=== PATIENT | female | born 1995 | race Caucasian/White ===

== ENCOUNTER 2021-05-21 19:43 | Emergency (ER) | payer OTHER, SELFPAY ==
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
[2021-05-21 19:56] VITALS: BP 124/62; PULSE 64; RESP 18; TEMP 36.1; O2SAT 99; BMI 40.6
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
[2021-05-21] MEDS: HYDROCODONE/ACET 5/325 TABLET 1 TAB PO (20:14)
[2021-05-21] MEDS: TET,DIPH,PERTUSS(ACELL),VAC/PF 0.5 ML SYRINGE IM (20:14)
[2021-05-21 20:33] VITALS: BP 124/61; PULSE 76; RESP 18; O2SAT 99
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
--- NOTE | 2021-05-22 18:23 | PC.NURSE ---
pt called today, requesting her ortho shoe, i made her aware of the prescription that was left behind as well. both were provided.
== END 2021-05-21 20:33 | disposition home or self-care (01) ==
PROVIDERS: Emergency Provider Emergency Medicine
DX: S91.131A Puncture wound without foreign body of right great toe without damage to nail, initial encounter (principal); W34.00XA Accidental discharge from unspecified firearms or gun, initial encounter; Z23 Encounter for immunization
CPT/HCPCS: 73630; 90471; 99283; 99284; 90715

== ENCOUNTER 2022-10-11 08:01 | Emergency (ER) | payer OTHER, MEDICAID, SELFPAY ==
[2022-10-11 08:04] VITALS: BP 160/82; PULSE 83; RESP 18; TEMP 36.6; O2SAT 96; BMI 45.4
[2022-10-11 08:06] VITALS: O2SAT 95
[2022-10-11 08:07] VITALS: BP 160/82; PULSE 89; O2SAT 99
[2022-10-11 08:16] VITALS: BP 149/91; PULSE 93; O2SAT 99
--- NOTE | 2022-10-11 08:17 | DI.RAD.S_ITS ---
PROCEDURE: XR ABDOMEN 1V INDICATIONS: abd pain TECHNIQUE: One view of the abdomen acquired. COMPARISON: None. FINDINGS: Surgical changes and devices: None. Bowel: Scattered small bowel and colonic gas. No dilated loops of bowel seen. Soft tissues: No suspicious abdominal calcifications. Visualized solid organ contours appear normal in size. Bones: No suspicious bony lesions. IMPRESSION: Nonobstructive bowel gas pattern. Dictated by: Eleno Monteiro M.D. on 10/11/2022 at 9:01 Approved by: Eleno Monteiro M.D. on 10/11/2022 at 9:02
--- NOTE | 2022-10-11 08:18 | ED_ITS ---
HPI - General Adult General Chief complaint: Abdominal Pain Stated complaint: upper abdom pain started yest Time Seen by Provider: 10/11/22 08:04 Source: patient Mode of arrival: Ambulatory Limitations: no limitations History of Present Illness HPI narrative: Patient is a 26-year-old female who is here for evaluation of left upper quadrant abdominal pain. States that the symptoms started yesterday. She was at work when the symptoms started. She thinks that maybe this morning when she drinks some fluids the symptoms gotten worse but she is not 100% sure. Did have a loose bowel movement yesterday but that was before the abdominal pain started. She denies any urinary symptoms. Some nausea but no vomiting. No prior abdominal surgeries. Has not tried anything for symptoms prior to arrival. Related Data Previous Rx's Medication Instructions Recorded hydrocodone 5 mg-acetaminophen 325 1 tab PO Q6H PRN pain #10 tabs 05/22/21 mg tablet Allergies Allergy/AdvReac Type Severity Reaction Status Date / Time No Known Drug Allergies Allergy Verified 05/23/21 08:30 Review of Systems Constitutional Constitutional: Reports system reviewed and no additional complaints, except as documented Cardiovascular Cardiovascular: Reports system reviewed and no additional complaints, except as documented Respiratory Respiratory: Reports system reviewed and no additional complaints, except as documented Gastrointestinal Gastrointestinal: Reports system reviewed and no additional complaints, except as documented Genitourinary Genitourinary: Reports system reviewed and no additional complaints, except as documented Integumentary/Breasts Skin/Breast: Reports system reviewed and no additional complaints, except as documented Patient History Social History Smoking Status: Never smoker Smoking Status: Never smoker Substance Use Type: does not use Exam Initial Vital Signs Initial Vital Signs: Vital Signs Temperature 98 F 10/11/22 08:04 Pulse Rate 83 10/11/22 08:04 Respiratory Rate 18 10/11/22 08:04 Blood Pressure 160/82 H 10/11/22 08:04 Pulse Oximetry 96 10/11/22 08:04 Oxygen Delivery Method 10/11/22 08:04 Const General: cooperative and comfortable HENMT Head: normal to inspection and normocephalic Resp Effort & Inspection: normal respiratory effort Auscultation: clear to auscultation bilaterally Cardio Rate: regular rate Rhythm: regular rhythm GI Inspection: normal to inspection and non-distended Palpation: soft, No firm and No tender Back/Spine/Pelvis Back: No CVA tenderness Neuro General: patient alert, patient awake and moves all extremities Extrem General: capillary refill normal Course Orders Ordered: ED Orders 10/11/22 08:17 XR abdomen 1V Stat 10/11/22 08:50 Complete Blood Count AUTO DIFF Stat Comprehensive Metabolic Panel Stat Lipase Stat 10/11/22 10:00 Test Urine Stat Urinalysis and Microscopic Stat Vital Signs Vital signs: Vital Signs - 8 hr 10/11/22 08:04 10/11/22 08:06 10/11/22 08:07 Temperature 98 F Pulse Rate 83 Respiratory Rate 18 Blood Pressure 160/82 H 160/82 H Pulse Oximetry 96 95 Oxygen Delivery Method Room Air 10/11/22 08:07 10/11/22 08:16 10/11/22 08:16 Temperature Pulse Rate 89 93 H Respiratory Rate Blood Pressure 149/91 H Pulse Oximetry 99 99 Oxygen Delivery Method 10/11/22 10:15 10/11/22 11:23 Temperature Pulse Rate 75 80 Respiratory Rate 18 18 Blood Pressure 140/70 140/70 Pulse Oximetry 98 98 Oxygen Delivery Method Room Air Medical Decision Making Differential Diagnosis Differential Diagnosis: Obstruction, appendicitis, pyelo, diverticulitis and others Condition is:: Well Controlled Discussed with:: Patient Lab Data Result diagrams: 10/11/22 08:50 10/11/22 08:50 Labs: Lab Results 10/11/22 10/11/22 10/11/22 Range/Units 08:50 08:50 08:50 WBC 10.7 (4.5-11.0) X10^3/uL RBC 4.99 (4.0-5.2) X10^6/uL Hgb 13.9 (12.0-16.0) g/dL Hct 42.4 (36-46) % MCV 84.8 (80-100) fL MCH 27.9 (26-34) PG MCHC 32.9 (30-36) % RDW 13.7 (11.6-14.8) % Plt Count 242 (150-400) X10^3/uL Neut % (Auto) 64.2 (50-75) % Lymph % (Auto) 29.8 (25-40) % [place] % (Auto) 3.5 (3-14) % Eos % (Auto) 1.8 L (2-4) % Baso % (Auto) 0.7 (0-2) % Neut # (Auto) 6800 (9251-7663) /uL Lymph # (Auto) 3200 (4075-4370) /uL [place] # (Auto) 400 (0-900) /uL Eos # (Auto) 200 (0-450) /uL Baso # (Auto) 100 (0-100) /uL Sodium 140 (137-145) mmol/L Potassium 3.9 (3.4-5.1) mmol/L Chloride 101 (98-107) mmol/L Carbon Dioxide 27 (22-32) mmol/L BUN 10 (7-17) mg/dL Creatinine 0.60 (0.52-1.04) mg/dL Estimated GFR > 60 (>60) mL/min BUN/Creatinine Ratio 16.7 (6-22) Glucose 98 (70-100) mg/dL Calcium 9.1 (8.4-10.2) mg/dL Total Bilirubin 0.7 (0.2-1.3) mg/dL AST 22 (14-36) IU/L ALT 19 (<35) IU/L Alkaline Phosphatase 72 (38-126) U/L Total Protein 7.9 (6.3-8.2) g/dL Albumin 4.6 (3.5-5.0) g/dL Globulin 3.3 (1.7-4.1) g/dL Albumin/Globulin Ratio 1.4 (1.0-2.8) Lipase 49 (23-300) U/L Urine Color Urine Appearance Urine pH (4.5-8.0) Ur Specific [place] (1.000-1.035) Urine Protein (Negative) Urine Glucose (UA) (Negative) g/dL Urine Ketones (NEGATIVE) Urine Occult Blood (Negative) Urine Nitrate (Negative) Urine Bilirubin (NEGATIVE) Urine Urobilinogen (0.2) E.U./dL Ur Leukocyte Esterase (NEGATIVE) Urine RBC (0-5/HPF) Urine WBC (0-5/HPF) Ur Squamous Epith Cells (0-5/HPF) Urine Bacteria (None) Ur Culture Indicated? Urine Test (Negative) 10/11/22 10/11/22 Range/Units 10:00 10:00 WBC (4.5-11.0) X10^3/uL RBC (4.0-5.2) X10^6/uL Hgb (12.0-16.0) g/dL Hct (36-46) % MCV (80-100) fL MCH (26-34) PG MCHC (30-36) % RDW (11.6-14.8) % Plt Count (150-400) X10^3/uL Neut % (Auto) (50-75) % Lymph % (Auto) (25-40) % [place] % (Auto) (3-14) % Eos % (Auto) (2-4) % Baso % (Auto) (0-2) % Neut # (Auto) (6620-6331) /uL Lymph # (Auto) (9949-7645) /uL [place] # (Auto) (0-900) /uL Eos # (Auto) (0-450) /uL Baso # (Auto) (0-100) /uL Sodium (137-145) mmol/L Potassium (3.4-5.1) mmol/L Chloride (98-107) mmol/L Carbon Dioxide (22-32) mmol/L BUN (7-17) mg/dL Creatinine (0.52-1.04) mg/dL Estimated GFR (>60) mL/min BUN/Creatinine Ratio (6-22) Glucose (70-100) mg/dL Calcium (8.4-10.2) mg/dL Total Bilirubin (0.2-1.3) mg/dL AST (14-36) IU/L ALT (<35) IU/L Alkaline Phosphatase (38-126) U/L Total Protein (6.3-8.2) g/dL Albumin (3.5-5.0) g/dL Globulin (1.7-4.1) g/dL Albumin/Globulin Ratio (1.0-2.8) Lipase (23-300) U/L Urine Color Yellow Urine Appearance Clear Urine pH 7.0 (4.5-8.0) Ur Specific [place] 1.015 (1.000-1.035) Urine Protein Negative (Negative) Urine Glucose (UA) Negative (Negative) g/dL Urine Ketones Negative (NEGATIVE) Urine Occult Blood 3+ H (Negative) Urine Nitrate Negative (Negative) Urine Bilirubin Negative (NEGATIVE) Urine Urobilinogen 0.2 (0.2) E.U./dL Ur Leukocyte Esterase Negative (NEGATIVE) Urine RBC 10-30/hpf H (0-5/HPF) Urine WBC None seen (0-5/HPF) Ur Squamous Epith Cells 1-5 /hpf (0-5/HPF) Urine Bacteria None seen (None) Ur Culture Indicated? Cult not indicated Urine Test Negative (Negative) Imaging Data Abdominal x-ray: Radiologist's Impression: [address] [address] XRay Report Signed Patient: Wendy Herrera MR#: [id number] : 1995 Acct:[id number] Age/Sex: 26 / F Date of Service: 10/11/22 Loc: ED Accession Number: [id number] ?? Procedure: XR abdomen 1V Ordering Provider: Cruz Villela D.O. PROCEDURE:? XR ABDOMEN 1V ? INDICATIONS:? abd pain ? TECHNIQUE:? One view of the abdomen acquired.? ? COMPARISON:? None. ? FINDINGS:? ? Surgical changes and devices:? None.? ? Bowel:? Scattered small bowel and colonic gas. No dilated loops of bowel seen. ? Soft tissues:? No suspicious abdominal calcifications.? Visualized solid organ contours appear normal in size.? ? Bones:? No suspicious bony lesions.? ? IMPRESSION:? Nonobstructive bowel gas pattern. ? ? Dictated by: Eleno Monteiro M.D. on 10/11/2022 at 9:01 ? ? Approved by: Eleno Monteiro M.D. on 10/11/2022 at 9:02? MDM Narrative Medical decision making narrative: Patient has a benign exam with benign labs and benign x-ray. Considered multiple intra-abdominal surgical pathology however given her exam, length of time she is had symptoms and lack of leukocytosis and normal abdominal x-ray feel that a CT scan is not warranted today. I did discuss this with the patient. Plan will be is to discharge home. She will take Tylenol and ibuprofen for discomfort. She was given strict return precautions to return to the emergency department if any of her symptoms worsen. She is aware of the lack of a definitive diagnosis of her symptoms. She expressed understanding and agreement with plan. Discharge Plan Departure Patient Disposition: Home Clinical Impression: Abdominal pain Instructions: DI for Abdominal Pain-Adult Activity Restrictions/Additional Instructions: Your workup here in the emergency department is very reassuring. I recommend Tylenol or ibuprofen for discomfort. Recommend a bland diet. Contact your primary doctor for a follow-up. Return to the emergency department for any new or worsening symptoms. Prescriptions: No Action hydrocodone-acetaminophen 5-325 mg tablet 1 tab PO Q6H PRN (Reason: pain) Qty: 10 0RF Referrals: Federico Domingo MD [Primary Care Provider] - Stand Alone Forms: Patient Portal/API, Work Release Note
[2022-10-11 09:03] LABS: Add Manual Diff / Slide Review NO; Basophils Absolute Auto 100 /uL (0-100); Basophils Percent Auto 0.7 % (0-2); Eosinophils Absolute Auto 200 /uL (0-450); Eosinophils Percent Auto 1.8 % (2-4); Hematocrit 42.4 % (36-46); Hemoglobin 13.9 g/dL (12.0-16.0); Lymphocytes Absolute Auto 3200 /uL (1100-4500); Lymphocytes Percent Auto 29.8 % (25-40); Mean Corpuscular HGB Conc 32.9 % (30-36); Mean Corpuscular Hemoglobin 27.9 PG (26-34); Mean Corpuscular Volume 84.8 fL (80-100); Monocytes Absolute Auto 400 /uL (0-900); Monocytes Percent Auto 3.5 % (3-14); Neutrophils Absolute Auto 6800 /uL (1500-7000); Neutrophils Percent Auto 64.2 % (50-75); Platelet Count 242 X10^3/uL (150-400); Red Blood Cell Count 4.99 X10^6/uL (4.0-5.2); Red Cell Distribution Width 13.7 % (11.6-14.8); White Blood Cell Count 10.7 X10^3/uL (4.5-11.0)
[2022-10-11 09:22] LABS: Alanine Aminotransferase 19 IU/L (<35); Albumin 4.6 g/dL (3.5-5.0); Albumin Globulin Ratio 1.4 (1.0-2.8); Alkaline Phosphatase 72 U/L (38-126); Aspartate Aminotransferase 22 IU/L (14-36); BUN Creatinine Ratio 16.7 (6-22); Bilirubin Total 0.7 mg/dL (0.2-1.3); Blood Urea Nitrogen 10 mg/dL (7-17); Calcium 9.1 mg/dL (8.4-10.2); Carbon Dioxide 27 mmol/L (22-32); Chloride 101 mmol/L (98-107); Estimated Glomerular Filt Rate > 60 mL/min (>60); Globulin 3.3 g/dL (1.7-4.1); Glucose 98 mg/dL (70-100); HEMOLYSIS < 15 (0-50); Potassium 3.9 mmol/L (3.4-5.1); Sodium 140 mmol/L (137-145); Total Protein 7.9 g/dL (6.3-8.2)
[2022-10-11 09:24] LABS: Lipase 49 U/L (23-300)
[2022-10-11 10:06] LABS: Appearance Urine UA CLEAR; Bilirubin Urine UA NEGATIVE (NEGATIVE); Color Urine UA YELLOW; Glucose Urine UA NEGATIVE (Negative); Ketones Urine UA NEGATIVE (NEGATIVE); Leukocyte Esterase Urine UA NEGATIVE (NEGATIVE); Nitrite Urine UA NEGATIVE (Negative); Occult Blood Urine UA 3+ (Negative); Protein Urine UA NEGATIVE (Negative); Specific Gravity Urine UA 1.015 (1.000-1.035); Urobilinogen Urine UA 0.2 E.U./dL (0.2)
[2022-10-11 10:12] LABS: Pregnancy Test Urine Negative (Negative)
[2022-10-11 10:15] VITALS: BP 140/70; PULSE 75; RESP 18; O2SAT 98
[2022-10-11 10:28] LABS: Bacteria Urine None Seen; Culture Indicated Urine Cult Not Indicated; RBC Urine 10-30/HPF (0-5/HPF); Squamous Epithelial Cell Urine 1-5 /HPF (0-5/HPF); WBC Urine None Seen (0-5/HPF)
[2022-10-11 11:23] VITALS: BP 140/70; PULSE 80; RESP 18; O2SAT 98
== END 2022-10-11 11:23 | disposition home or self-care (01) ==
PROVIDERS: Emergency Provider Emergency Medicine; PCP Family Medicine
DX: R10.12 Left upper quadrant pain (principal)
CPT/HCPCS: 36415; 74018; 80053; 81001; 81025; 83690; 85025; 99283; 99284